=== PATIENT | male | born 1950 | race Caucasian/White ===

== ENCOUNTER 2016-09-28 21:54 | Inpatient (IN) | payer OTHER ==
[~2016-09-28] VITALS: Ht 180.3 cm; Wt 85.7 kg
[~2016-09-28 21:54] MED LIST: ALLOPURINOL; ZETIA10 MG PO
[2016-09-28 22:08] VITALS: BP 162/93
[2016-09-28 22:32] LABS: ADD MIUA? NO; BILIRUBIN NEGATIVE; BLOOD NEGATIVE; COLOR YELLOW ((YELLOW)); GLUCOSE (STRIP) NEGATIVE; KETONES NEGATIVE; LEUKOCYTES NEGATIVE; NITRITE NEGATIVE; PROTEIN (STRIP) NEGATIVE; SPECIFIC GRAVITY 1.015 (1.000-1.030); UCUL ADDED? NO; UROBILINOGEN 0.2 MG/DL (0.2-1.0)
[2016-09-28 22:35] LABS: HEMATOCRIT 45.6 % (38.0-50.0); MCH 31.9 PG (29.0-34.0); MCHC 34.2 G/DL (30.0-36.0); MCV 93.3 FL (86-99); MEAN PLAT.VOLUME 9.3 uM^3 (9.0-12.4); PLATELET COUNT 256 K/uL (156-360); RBC DIS.WIDTH-CV 12.9 % (11.8-14.6); RBC DIS.WIDTH-SD 44.3 % (39-53); RED BLOOD COUNT 4.89 M/uL (4.00-5.50); WHITE BLOOD COUNT 9.8 K/uL (4.1-10.2)
[2016-09-28 22:53] LABS: CHLORIDE 106 mEq/L (99-109); POTASSIUM 3.8 mEq/L (3.7-5.4); SODIUM 140 mEq/L (136-147)
[2016-09-28 22:55] LABS: GLUCOSE 169 mg/dL (70-99)
[2016-09-28 22:57] LABS: ANION GAP 10 MEQ/L (2-14); TOTAL BILIRUBIN 1.2 mg/dL (0.0-1.0)
[2016-09-28 22:59] VITALS: BP 153/95
[2016-09-28 22:59] LABS: ALKALINE PHOSPHATASE 38 IU/L (3-129); GFR ESTIMATE (CALCULATED) 54 mL/min/
[2016-09-28 23:00] LABS: UREA NITROGEN (BUN) 16 mg/dL (9-23)
[2016-09-28 23:02] LABS: LIPASE 41 U/L (1.0-51.0)
[2016-09-28 23:10] LABS: TROP-I INTERPRETATION NEGATIVE; TROPONIN-I < 0.01 ng/mL (0.0-0.30)
[2016-09-28 23:59] VITALS: BP 153/95
[2016-09-29] VITALS (7 sets, daily range): BP systolic 108–203; BP diastolic 52–100
[2016-09-29] MEDS ORDERED: LIVALO4 MG PO (00:19)
[2016-09-29] MEDS ORDERED: LO-DOSE ASPIRIN81 M2 PO (00:19)
[2016-09-29] MEDS ORDERED: ALLOPURINOL300 MG PO (00:19)
[2016-09-29] MEDS ORDERED: AMLODIPINE-VAL1 EAC2 PO (00:19)
[2016-09-29 06:07] LABS: HEMATOCRIT 46.2 % (38.0-50.0); MCH 33.1 PG (29.0-34.0); MCHC 35.5 G/DL (30.0-36.0); MCV 93.3 FL (86-99); MEAN PLAT.VOLUME 9.4 uM^3 (9.0-12.4); PLATELET COUNT 229 K/uL (156-360); RBC DIS.WIDTH-SD 44.4 % (39-53); RED BLOOD COUNT 4.95 M/uL (4.00-5.50); WHITE BLOOD COUNT 8.9 K/uL (4.1-10.2)
[2016-09-29 06:36] LABS: ANION GAP 13 MEQ/L (2-14); CHLORIDE 102 MEQ/L (99-109); GFR ESTIMATE (CALCULATED) 58 mL/min/; GLUCOSE 147 mg/dL (70-99); POTASSIUM 4.1 MEQ/L (3.7-5.4); SAMPLE HEMOLYSIS CHECK 0; SAMPLE ICTERIC CHECK 0; SAMPLE LIPEMIA CHECK 0; SODIUM 138 MEQ/L (136-147); UREA NITROGEN (BUN) 14 mg/dL (9-23)
[2016-09-30 03:30] VITALS: BP 129/69
[2016-09-30 06:26] LABS: EOSINOPHIL (%) 0.6 % (0-5); EOSINOPHIL COUNT 0.1 K/uL (0-0.3); HEMATOCRIT 43.5 % (38.0-50.0); IMMATURE GRANULOCYTE (%) 0.4 % (0.0-0.7); LYMPHOCYTE COUNT 1.5 K/uL (1.0-2.8); MCHC 33.8 G/DL (30.0-36.0); MCV 94.8 FL (86-99); MEAN PLAT.VOLUME 9.6 uM^3 (9.0-12.4); MONOCYTE (%) 8.2 % (3-12); MONOCYTE COUNT 0.7 K/uL (0-0.8); NEUTROPHIL (%) 71.7 % (45-76); PLATELET COUNT 244 K/uL (156-360); RBC DIS.WIDTH-CV 13.2 % (11.8-14.6); RBC DIS.WIDTH-SD 46.1 % (39-53); RED BLOOD COUNT 4.59 M/uL (4.00-5.50); WHITE BLOOD COUNT 8.3 K/uL (4.1-10.2)
[2016-09-30 06:35] LABS: ANION GAP 7 MEQ/L (2-14); CHLORIDE 105 MEQ/L (99-109); POTASSIUM 4.8 MEQ/L (3.7-5.4); SAMPLE HEMOLYSIS CHECK 0; SAMPLE ICTERIC CHECK 0; SAMPLE LIPEMIA CHECK 0; SODIUM 141 MEQ/L (136-147)
[2016-09-30 06:50] LABS: GFR ESTIMATE (CALCULATED) 49 mL/min/; UREA NITROGEN (BUN) 18 mg/dL (9-23)
[2016-09-30 06:52] LABS: GLUCOSE 98 mg/dL (70-99)
[2016-09-30 07:57] VITALS: BP 130/74
[2016-09-30 16:00] VITALS: BP 142/71
== END 2016-09-30 18:33 | disposition home or self-care (01) | DRG 390 ==
LOC: EME 21:54 → 5EAST 09-29 00:06 → EDOF 09-29 00:06 → 5EAST 09-29 00:06 → EDOF 09-29 00:12 → 5EAST 09-29 01:38
PROVIDERS: Physician Assistant; Surgery
DX: K56.5 Intestinal adhesions [bands] with obstruction (postinfection) (principal); I10 Essential (primary) hypertension; Z90.49 Acquired absence of other specified parts of digestive tract; E78.5 Hyperlipidemia, unspecified
CPT/HCPCS: 74020; 74177; 80048; 80053; 81003; 83605; 83690; 84484; 85025; 85027; 93005; 99281; 99285; C9113; J2270; J2405; J3010; J7030; J7120; S0028